=== PATIENT | male | born 1960 | race Caucasian/White ===

== ENCOUNTER → 2020-07-26 09:55 | Outpatient (CLI) | payer OTHER, SELFPAY ==
--- NOTE | 2020-07-26 10:05 | RAD_ITS ---
STUDY: X-RAY - LUMBAR SPINE REASON FOR EXAM: Male, 59 years old patient pain in lower back radiating into both hips. No known recent injury. Past medical history of inflammatory polyarthropathy. TECHNIQUE: 5 view(s) of the lumbar spine were obtained. COMPARISON: Prior comparison studies are not available for review at this time. FINDINGS: There is an exaggerated lumbar lordosis. There is no substantial scoliosis. There is a normal alignment of the vertebrae. There is multilevel endplate spondylosis of the lumbar vertebrae. There is multi-level degenerative disc disease with multi-level disc space narrowing. There is no demonstrated fracture. There is multilevel degenerative arthropathy of the facet joints of the lumbar spine. There is no obvious organomegaly, mass, dilated bowel or pathologic calcifications. RAD/L/S Spine Min 4 Views IMPRESSION: Multilevel degenerative disc disease, spondylosis and degenerative arthropathy of the lumbar spine. Electronically Signed: Kallie Holm MD at 2:15 EDT , Service support ,
--- NOTE | 2020-07-26 10:15 | RAD_ITS ---
STUDY: X-RAY - PELVIS REASON FOR EXAM: Male, 59 years old patient with pain in lower back with radiation into both hips. No known recent injury. Past medical history of inflammatory polyarthropathy. TECHNIQUE: One view of the pelvis was obtained. COMPARISON: Prior comparison studies are not available for review at this time. FINDINGS: There is a non-specific bowel gas pattern. There are multiple calcified phleboliths. The sacrum and iliac wings are partially obscured by bowel gas and/or stool. Normal visualized bilateral superior and inferior pubic rami. Normal pubic symphysis. Normal ischial tuberosities. Normal visualized right femoral head. Normal right acetabulum. Normal right hip joint. Normal visualized left femoral head. Normal left acetabulum. Normal left hip joint. RAD/Pelvis 1 or 2 Views IMPRESSION: No radiographic evidence for acute fracture. Electronically Signed: Kallie Holm MD at 2:17 EDT , Service support ,
[2020-07-26 12:03] LABS: Erythrocyte Sedimentation Rate 2 mm/hr (0-20)
[2020-07-26 12:20] LABS: Absolute Lymphocyte Count 1.87 X10^3/uL (0.83-4.51); Absolute Neutrophil Count 5.1 X10^3/uL (2.0-7.7); Basophil# 0.09 X10^3/uL; Basophil% 1.1 % (0-1); Eosinophil# 0.17 X10^3/uL; Eosinophils% 2.1 % (0-5); Hematocrit 42.3 % (40-54); Hemoglobin 13.6 g/dL (13.0-16.5); Lymphocyte # 1.87 X10^3/ul (4.0); Lymphocyte % 23.1 % (19-41); Mean Corp Hgb Conc 32.2 g/dL (32-36); Mean Corpuscular Volume 96.4 fL (80-94); Mean Platelet Vol. 9.5 fl (6.2-12.0); Monocyte# 0.84 X10^3/uL; Monocyte% 10.4 % (0-10); NRBC Flagged by Analyzer 0 % (0-5); Neutrophil # 5.12 X10^3/uL (2.7-7.7); Neutrophil % 63.1 % (47-70); Platelet Count 332 K/mm3 (150-450); RBC Distribution Width SD 41.9 fl (35.1-43.9); Red Blood Count 4.39 M/mm3 (4.6-6.2); White Blood Count 8.1 K/mm3 (4.4-11.0)
[2020-07-26 13:10] LABS: ALB/GLOB Ratio 1.1 RATIO (0.9-2.4); AST(SGOT) 18 U/L (15-37); Alanine Aminotransfer ALT/SGPT 25 U/L (16-61); Albumin, Serum 3.6 g/dL (3.2-5.0); Alkaline Phosphatase 45 U/L (45-117); Anion Gap 3 (5-15); BUN 13 mg/dL (7-18); CRP < 2.90 mg/L (0.0-3.0); Chloride 105 mmol/L (98-107); EST Glomerular Filtration Rate 81 mL/min (>60); Est Glom Filt Rate - Afr Amer 98 mL/min (>60); Globulin 3.3 g/dL (2.2-4.2); Glucose 96 mg/dL (74-106); Potassium 4.4 mmol/L (3.5-5.1); Protein, Total 6.9 g/dL (6.4-8.2); Rheumatoid Factor < 10.0 IU/mL (<15); Sodium Level 138 mmol/L (136-145)
[2020-07-26 13:17] LABS: Hepatitis B Surface Antibody Reactive; Hepatitis B Surface Antigen Non-Reactive (Nonreactive); Hepatitis C Antibody Non-Reactive (Nonreactive)
[2020-07-27 16:59] LABS: ANTINUCLEAR ANTIBODIES DIRECT Negative (Negative)
[2020-08-02 04:44] LABS: CCP IgG Antibodies 4 units (0-19); HLA B27 Positive (.); Hepatitis B Core AB IgM Negative (Negative)
== END ==
PROVIDERS: PCP Family Medicine; Referring Provider Internal Medicine Rheumatology; Visit Provider Internal Medicine Rheumatology
DX: M06.4 Inflammatory polyarthropathy (principal); I10 Essential (primary) hypertension; J45.909 Unspecified asthma, uncomplicated; K44.9 Diaphragmatic hernia without obstruction or gangrene; E29.1 Testicular hypofunction; Z87.19 Personal history of other diseases of the digestive system
CPT/HCPCS: 36415; 72110; 72170; 80053; 81374; 85025; 85652; 86038; 86140; 86200; 86431; 86705; 86706; 86803; 87340